=== PATIENT | male | born 1995 | race Caucasian/White ===

== ENCOUNTER → 2017-07-18 | Outpatient (CLI) | payer OTHER ==
[2017-07-18 08:43] LABS: Basophils % (A) 0 %; Eosinophils % (A) 0 %; HCT 45.4 % (39.0-53.0); HGB 15.6 gm/dL (13.0-17.5); Lymphocytes # (A) 0.9 k/uL (1.0-4.8); Lymphocytes % (A) 26 %; MCH 29.4 pg (25.0-35.0); MCHC 34.3 g/dL (31.0-37.0); MCV 85.8 fL (80.0-100.0); Mean Platelet Volume 7.3; Monocytes # (A) 0.2 k/uL (0-1.0); Monocytes % (A) 7 %; Neutrophils # (A) 2.1 k/uL (1.3-7.7); Neutrophils % (A) 65 %; Platelet Count 213 k/uL (150-450); RBC 5.29 m/uL (4.30-5.90); RDW 12.8 % (11.5-15.5); WBC 3.3 k/uL (4.0-11.0)
[2017-07-18 08:54] LABS: ALT 76 U/L (21-72); AST 45 U/L (17-59); Albumin 4.5 g/dL (3.5-5.0); Alkaline Phosphatase 62 U/L (38-126); Anion Gap 10 mmol/L; Blood Urea Nitrogen 16 mg/dL (9-20); Carbon Dioxide 32 mmol/L (22-30); Chloride 101 mmol/L (98-107); Cholesterol 125 mg/dL (<200); Glucose 102 mg/dL (74-99); HDL Cholesterol 50 mg/dL (40-60); LDL Cholesterol,Calculated 63 mg/dL (0-99); Potassium 5.1 mmol/L (3.5-5.1); Sodium 143 mmol/L (137-145); Total Bilirubin 0.6 mg/dL (0.2-1.3); Total Protein 7.6 g/dL (6.3-8.2); Triglycerides 61 mg/dL (<150)
== END | disposition home or self-care (01) ==
LOC: LABWHC1 07:07
PROVIDERS: ATTEND Family Medicine
DX: Z00.00 Encounter for general adult medical examination without abnormal findings (principal); F90.9 Attention-deficit hyperactivity disorder, unspecified type
CPT/HCPCS: 36415; 80053; 80061; 85025

== ENCOUNTER 2017-10-05 18:21 | Inpatient (IN) | payer MEDICAID, OTHER ==
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
[2017-10-05 19:42] LABS: Amphetamine Screen,Urine Detected (NotDetected); Barbiturate Screen,Urine Not Detected (NotDetected); Benzodiazepines Screen,Urine Not Detected (NotDetected); Cocaine Screen,Urine Not Detected (NotDetected); Methadone Screen, Urine Not Detected (NotDetected); Opiate Screen,Urine Not Detected (NotDetected); Oxycodone Screen, Urine Not Detected (NotDetected); Phencyclidine Screen,Urine Not Detected (NotDetected); Tricyclic Antidepressant,Urine Not Detected (NotDetected); Urn Cannabinoid Scrn Not Detected (NotDetected)
[2017-10-06] MEDS ORDERED: MAGNESIUM HYDROXIDE 2,400 MG/10 ML CUP PO PRN (01:13)
[2017-10-06] MEDS ORDERED: clonazePAM 1 MG TAB PO SCH (01:35)
[2017-10-06] MEDS ORDERED: clonazePAM 0.5 MG TAB PO ONE (02:05)
[2017-10-06] MEDS: cloNIDine HCL 0.1 MG TAB PO SCH ×2 (02:12→20:49)
[2017-10-06] MEDS: SERTRALINE 100 MG TAB PO SCH ×2 (02:50→20:48)
[2017-10-06 05:45] VITALS: BMI 20.5
[2017-10-06] MEDS: OXcarbazepine 300 MG TAB PO SCH ×2 (08:05→20:48)
[2017-10-06] MEDS: NALTREXONE HCL 50 MG TAB PO SCH (08:05)
[2017-10-06] MEDS: clonazePAM 1 MG TAB PO SCH (08:05)
[2017-10-06] MEDS: ACETAMINOPHEN TAB 325 MG TAB PO PRN (08:52)
[2017-10-06 09:02] LABS: Basophils % (A) 0 %; Eosinophils % (A) 0 %; HCT 39.5 % (39.0-53.0); Lymphocytes # (A) 0.9 k/uL (1.0-4.8); Lymphocytes % (A) 22 %; MCHC 35.4 g/dL (31.0-37.0); MCV 84.7 fL (80.0-100.0); Mean Platelet Volume 7.2; Monocytes # (A) 0.1 k/uL (0-1.0); Monocytes % (A) 3 %; Neutrophils # (A) 3.1 k/uL (1.3-7.7); Neutrophils % (A) 73 %; Platelet Count 232 k/uL (150-450); RBC 4.66 m/uL (4.30-5.90); RDW 13.3 % (11.5-15.5); WBC 4.2 k/uL (3.8-10.6)
[2017-10-06 09:14] LABS: ALT 37 U/L (21-72); AST 37 U/L (17-59); Albumin 4.2 g/dL (3.5-5.0); Alkaline Phosphatase 72 U/L (38-126); Anion Gap 11 mmol/L; Blood Urea Nitrogen 13 mg/dL (9-20); Calcium 9.5 mg/dL (8.4-10.2); Carbon Dioxide 32 mmol/L (22-30); Chloride 100 mmol/L (98-107); Cholesterol 108 mg/dL (<200); Glucose 116 mg/dL (74-99); HDL Cholesterol 43 mg/dL (40-60); LDL Cholesterol,Calculated 51 mg/dL (0-99); Potassium 4.6 mmol/L (3.5-5.1); Sodium 143 mmol/L (137-145); Total Bilirubin 0.1 mg/dL (0.2-1.3); Total Protein 7.1 g/dL (6.3-8.2); Triglycerides 72 mg/dL (<150)
[2017-10-06] MEDS: MAG HYDROX/AL HYDROX/SIMETH 30 ML CUP PO PRN ×2 (09:25→16:37)
[2017-10-06] MEDS: MULTIVITAMINS, THERA 1 EACH TAB PO SCH (12:05)
[2017-10-06] MEDS: clonazePAM 0.5 MG TAB PO SCH ×2 (16:37→20:48)
[2017-10-06 18:19] LABS: Hemoglobin A1C 4.8 % (4.0-6.0)
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
[2017-10-07] MEDS: OXcarbazepine 300 MG TAB PO SCH ×2 (08:03→20:55)
[2017-10-07] MEDS: NALTREXONE HCL 50 MG TAB PO SCH (08:03)
[2017-10-07] MEDS: MULTIVITAMINS, THERA 1 EACH TAB PO SCH (08:03)
[2017-10-07] MEDS: clonazePAM 1 MG TAB PO SCH (08:03)
[2017-10-07] MEDS: MAG HYDROX/AL HYDROX/SIMETH 30 ML CUP PO PRN ×2 (09:16→15:35)
[2017-10-07] MEDS: SODIUM CHLORIDE 0.65% NASAL SPRAY 44 ML BTL NASAL PRN ×2 (09:16→12:03)
--- NOTE | 2017-10-07 10:15 | P.PN ---
Progress Note - Text Progress Note Date: 10/07/17 Interval history: Patient seen in [facility] today. He describes feeling tired. He does feeling his mood is doing better. He slept better last night and his anxiety seems to be under better control with the Klonopin at bedtime. He describes difficulty with his eyes today, relays that they are red. He relays that normally he takes like a Visine eyedrops to help this. Mental status exam: He is alert and cooperative with the interview. His affect overall is restricted. He describes his mood is better. He denies any thoughts of harm to self or others. He does state that he gets irritated with people when they're talking sometimes but relays he just tries to ignore this. He does not show any active evidence of psychosis. He does not show any agitation. Plan: We'll maintain current psychotropic medication regimen. Monitor for any medication side effects. Monitor his ongoing response to treatment.
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
[2017-10-07] MEDS: TETRAHYDROZOLINE 0.05% OPHTH DROPS 15 ML BTL BOTH EYES PRN (15:31)
[2017-10-07] MEDS: clonazePAM 0.5 MG TAB PO SCH ×2 (15:31→21:26)
[2017-10-07] MEDS: ACETAMINOPHEN TAB 325 MG TAB PO PRN (17:17)
[2017-10-07] MEDS: SERTRALINE 100 MG TAB PO SCH (20:55)
[2017-10-07] MEDS: cloNIDine HCL 0.1 MG TAB PO SCH (22:56)
[2017-10-08] MEDS: TETRAHYDROZOLINE 0.05% OPHTH DROPS 15 ML BTL BOTH EYES PRN ×2 (06:51→20:11)
[2017-10-08] MEDS: clonazePAM 1 MG TAB PO SCH (08:59)
[2017-10-08] MEDS: OXcarbazepine 300 MG TAB PO SCH ×2 (08:59→20:10)
[2017-10-08] MEDS: SODIUM CHLORIDE 0.65% NASAL SPRAY 44 ML BTL NASAL PRN ×3 (09:10→20:11)
[2017-10-08] MEDS: NALTREXONE HCL 50 MG TAB PO SCH (09:11)
[2017-10-08] MEDS: MAG HYDROX/AL HYDROX/SIMETH 30 ML CUP PO PRN (10:43)
[2017-10-08] MEDS: ACETAMINOPHEN TAB 325 MG TAB PO PRN (10:43)
[2017-10-08] MEDS: MULTIVITAMINS, THERA 1 EACH TAB PO SCH (11:08)
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
[2017-10-08] MEDS: clonazePAM 0.5 MG TAB PO SCH ×2 (15:10→19:13)
[2017-10-08] MEDS: SERTRALINE 100 MG TAB PO SCH (20:10)
[2017-10-09] MEDS: SODIUM CHLORIDE 0.65% NASAL SPRAY 44 ML BTL NASAL PRN ×2 (08:30→20:14)
[2017-10-09] MEDS: TETRAHYDROZOLINE 0.05% OPHTH DROPS 15 ML BTL BOTH EYES PRN ×2 (08:30→20:17)
[2017-10-09] MEDS: NALTREXONE HCL 50 MG TAB PO SCH (08:32)
[2017-10-09] MEDS: MULTIVITAMINS, THERA 1 EACH TAB PO SCH (08:32)
[2017-10-09] MEDS: clonazePAM 1 MG TAB PO SCH (08:32)
[2017-10-09] MEDS: OXcarbazepine 300 MG TAB PO SCH ×2 (08:32→20:13)
[2017-10-09] MEDS: ACETAMINOPHEN TAB 325 MG TAB PO PRN ×2 (09:43→23:12)
[2017-10-09] MEDS: MAG HYDROX/AL HYDROX/SIMETH 30 ML CUP PO PRN (11:42)
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
[2017-10-09] MEDS: clonazePAM 0.5 MG TAB PO SCH ×2 (15:02→20:13)
[2017-10-09] MEDS: SERTRALINE 100 MG TAB PO SCH (20:13)
[2017-10-10 06:31] VITALS: BP 95/62; PULSE 83; RESP 16; TEMP 98.1
[2017-10-10] MEDS: ACETAMINOPHEN TAB 325 MG TAB PO PRN (07:10)
[2017-10-10] MEDS: SODIUM CHLORIDE 0.65% NASAL SPRAY 44 ML BTL NASAL PRN (07:12)
[2017-10-10] MEDS: OXcarbazepine 300 MG TAB PO SCH (08:45)
[2017-10-10] MEDS: NALTREXONE HCL 50 MG TAB PO SCH (08:46)
[2017-10-10] MEDS: TETRAHYDROZOLINE 0.05% OPHTH DROPS 15 ML BTL BOTH EYES PRN (08:46)
[2017-10-10] MEDS: clonazePAM 1 MG TAB PO SCH (08:46)
[2017-10-10] MEDS ORDERED: BACITRACIN OINT 1 EACH PACKET TOPICAL ONE (09:23)
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
[2017-10-10] MEDS: MAG HYDROX/AL HYDROX/SIMETH 30 ML CUP PO PRN (10:26)
[2017-10-10] MEDS: MULTIVITAMINS, THERA 1 EACH TAB PO SCH (11:58)
== END 2017-10-10 13:28 | disposition home or self-care (01) | DRG 885 ==
LOC: EC 18:21 → 3MHU 21:50
PROVIDERS: ADMIT Psychiatry & Neurology Psychiatry; ATTEND Psychiatry & Neurology Psychiatry
DX: F31.5 Bipolar disorder, current episode depressed, severe, with psychotic features (principal); R45.851 Suicidal ideations; F41.1 Generalized anxiety disorder; F79 Unspecified intellectual disabilities; F90.9 Attention-deficit hyperactivity disorder, unspecified type; F98.8 Other specified behavioral and emotional disorders with onset usually occurring in childhood and adolescence; R73.9 Hyperglycemia, unspecified; G47.00 Insomnia, unspecified; Z79.899 Other long term (current) drug therapy; Z81.8 Family history of other mental and behavioral disorders
CPT/HCPCS: 80053; 80061; 80183; 80306; 82075; 83036; 84443; 85025; 99285